=== PATIENT | male | born 1980 | race Two or more races ===

== ENCOUNTER 2017-12-03 00:13 | Emergency (ER) | payer MEDICAID ==
[~2017-12-03] VITALS: Ht 165.1 cm; Wt 67.1 kg
[2017-12-03 00:43] VITALS: BP 120/82
[2017-12-03] MEDS ORDERED: MUPIROCIN22 GM TOPIC (00:46)
[2017-12-03] MEDS ORDERED: PERMETHRIN60 GM TOPIC (00:46)
--- NOTE | 2017-12-03 00:46 | Emergency Room Report ---
History of Present Illness General Chief Complaint: Male Urogenital Problems Source: Patient Present Illness HPI Is a 37-year-old male presents with chief complaint of itchiness to the groin area. His been ongoing for 8 months. He saw his primary care Dr. prescribe her cream and is not helping. He does shave his genital area but he said the itching cause before that. Denies any drug use. Denies any nausea vomiting. Denies any fever or chills. No lice. Nothing made it better. Scratching made it worse. Allergies: Coded Allergies: No Known Allergies (Unverified , 12/03/17) Patient History Past Medical History: see triage record, old chart reviewed Past Surgical History: none Pertinent Family History: none Social History: Denies: smoking, drug use Immunizations: other Reviewed Nursing Documentation: PMH: Agreed; PSxH: Agreed Nursing Documentation-PMH Past Medical History: No Stated History Review of Systems Eye: Denies: eye pain, blurred vision ENT: Denies: ear pain, nose congestion, throat swelling Respiratory: Denies: cough, shortness of breath Cardiovascular: Denies: chest pain, palpitations Gastrointestinal: Denies: abdominal pain, diarrhea, nausea, vomiting Musculoskeletal: Denies: back pain, joint pain Skin: Denies: rash Neurological: Denies: headache, numbness Endocrine: Denies: increased thirst, increased urine Hematologic/Lymphatic: Denies: easy bruising All Other Systems: negative except mentioned in HPI Physical Exam Vital Signs Date Time Temp Pulse Resp B/P (MAP) Pulse Ox O2 Delivery O2 Flow Rate FiO2 12/03/17 00:18 98.1 65 14 120/82 97 Room Air 98.1 vitals normal Sp02 EP Interpretation: reviewed, normal General Appearance: well appearing, no apparent distress, alert Head: normocephalic, atraumatic Eyes: bilateral eye PERRL, bilateral eye EOMI ENT: hearing grossly normal, normal pharynx Neck: full range of motion, supple, no meningismus Respiratory: chest non-tender, lungs clear, normal breath sounds Cardiovascular #1: regular rate, rhythm, no murmur Gastrointestinal: normal bowel sounds, non tender, no mass, no organomegaly, no bruit, non-distended Genitourinary: other - Female exam normal. Scrotal exam showed minimal skin irritation from scratching. No burrows, cellulitis, abscess or rash seen. Musculoskeletal: back normal, gait/station normal, normal range of motion Neurologic: alert, oriented x3 Psychiatric: mood/affect normal Skin: warm/dry Medical Decision Making Diagnostic Impression: Primary Impression: Scrotal disorder ER Course Patient presents with itching to the scrotum. I see no evidence of infection. We'll go ahead and put him on antibiotic ointment and Elimite. I doubt this is scabies since his been going on for months. No evidence of diabetes. He may have delusional parasitosis. He denies any drug use. Last Vital Signs Date Time Temp Pulse Resp B/P (MAP) Pulse Ox O2 Delivery O2 Flow Rate FiO2 12/03/17 00:18 98.1 65 14 120/82 97 Room Air 98.1 Status: improved Disposition: HOME, SELF-CARE Condition: Stable Scripts Permethrin* (ELIMITE*) 60 Gm Cream..g. 1 APPLIC TOPIC ONCE, #60 GM 0 Refills Apply cream from head to toe; leave on for 8-14 hours before washing off with water; may reapply in 1 week if live mites appear. Prov: AYUSH BYERS M.D. 12/03/17 Mupirocin* (MUPIROCIN*) 22 Gm Oint...g. 1 APPLIC TOPIC THREE TIMES A DAY, #22 GM Prov: AYUSH BYERS M.D. 12/03/17 Additional Instructions: Follow-up with your doctor in a week. Return if worse. AYUSH BYERS M.D. Dec 03, 2017 00:46
[2017-12-03 03:17] VITALS: BP 120/82
== END 2017-12-03 01:00 | disposition home or self-care (01) ==
LOC: EMR 00:47
DX: N50.89 Other specified disorders of the male genital organs (principal)
CPT/HCPCS: 80307; 99284